=== PATIENT | female | born 1950 | race Caucasian/White ===

== ENCOUNTER 2021-08-01 18:53 | Emergency (ER) | payer MEDICARE ==
[2021-08-01] MEDS ORDERED: Albuterol/Ipratropium 3.0-0.5 MG/3 ML Neb Soln NEB ONE (20:28)
[2021-08-01] MEDS ORDERED: guaiFENesin 600 MG Tab.ER PO ONE (21:27)
== END 2021-08-01 21:55 | disposition home or self-care (01) ==
LOC: JP.ED 18:53
DX: J44.1 Chronic obstructive pulmonary disease with (acute) exacerbation (principal); R09.02 Hypoxemia; M19.90 Unspecified osteoarthritis, unspecified site; E11.9 Type 2 diabetes mellitus without complications; E03.9 Hypothyroidism, unspecified; E66.9 Obesity, unspecified; Z68.33 Body mass index [BMI] 33.0-33.9, adult; Z79.899 Other long term (current) drug therapy
CPT/HCPCS: 94640; 99282; 99284-25; A9270-GY; J7620

== ENCOUNTER 2022-02-19 13:48 | Emergency (ER) | payer MEDICARE ==
[2022-02-19] MEDS ORDERED: Albuterol/Ipratropium 3.0-0.5 MG/3 ML Neb Soln NEB ONE (15:18)
[2022-02-19 15:57] LABS: CORONAVIRUS COVID-19 NAA NEGATIVE (NEGATIVE)
[2022-02-19 15:58] LABS: ESTIMATED GFR 68 mL/min (>60); TROPONIN I HIGH SENSITIVITY 15.7 pg/mL (<=60.3)
[2022-02-19] MEDS ORDERED: methylPREDNISolone Sodium Succinate 40 MG/1 ML SDV IM ONE (16:43)
== END 2022-02-19 17:11 | disposition home or self-care (01) ==
LOC: JP.ED 13:48
DX: J21.0 Acute bronchiolitis due to respiratory syncytial virus (principal); J43.9 Emphysema, unspecified; M19.90 Unspecified osteoarthritis, unspecified site; E11.9 Type 2 diabetes mellitus without complications; E03.9 Hypothyroidism, unspecified; E66.9 Obesity, unspecified; Z68.32 Body mass index [BMI] 32.0-32.9, adult; Z87.891 Personal history of nicotine dependence; Z79.82 Long term (current) use of aspirin; Z79.84 Long term (current) use of oral hypoglycemic drugs; Z79.899 Other long term (current) drug therapy; Z20.822 Contact with and (suspected) exposure to COVID-19
CPT/HCPCS: 0241U; 36415; 71046; 80053; 83605; 84145; 84484; 85025; 94640; 96372; 99285; J2920; 99283; J7620

== ENCOUNTER 2022-02-21 07:50 | Inpatient (IN) | payer MEDICARE ==
[2022-02-21 08:48] LABS: ESTIMATED GFR 68 mL/min (>60)
[2022-02-21] MEDS ORDERED: Sodium Chloride 0.9% 10 ML Syringe FLUSH PRN ×2 (08:57→14:10)
[2022-02-21] MEDS ORDERED: Albuterol 0.083% 2.5 MG/3 ML Neb Soln NEB ONE (08:57)
[2022-02-21] MEDS ORDERED: Potassium Chloride 10 MEQ in Premix Bag 1 BAG IV ONE (08:58)
[2022-02-21] MEDS ORDERED: methylPREDNISolone Sodium Succinate 125 MG/2 ML SDV IVPUSH ONE (09:02)
[2022-02-21] MEDS ORDERED: Furosemide 40 MG/4 ML VIAL IVPUSH ONE (09:26)
[2022-02-21] MEDS ORDERED: Potassium Chloride 20 MEQ Tab.ER PO ONE ×2 (11:47→13:30)
[2022-02-21] MEDS ORDERED: Albuterol/Ipratropium 3.0-0.5 MG/3 ML Neb Soln NEB ONE (11:51)
[2022-02-21] MEDS: Potassium Chloride 10 MEQ in Premix Bag 1 BAG IV SCH ×4 (13:25→17:58)
[2022-02-21] MEDS ORDERED: Furosemide 40 MG Tab PO PRN (14:10)
[2022-02-21] MEDS ORDERED: Albuterol 90 MCG/6.7 GM Inhaler INH PRN (14:10)
[2022-02-21] MEDS ORDERED: Glucose Gel 15 GM in 37.5 GM Tube PO PRN (14:10)
[2022-02-21] MEDS ORDERED: Ondansetron 4 MG/2 ML SDV IV PRN (14:10)
[2022-02-21] MEDS ORDERED: Sodium Chloride 0.9% 1,000 ML IV SCH (14:10)
[2022-02-21] MEDS ORDERED: Acetaminophen 325 MG Tab PO PRN (14:10)
[2022-02-21] MEDS ORDERED: 50% Dextrose in Water 50 ML Syringe IV PRN (14:10)
[2022-02-21] MEDS ORDERED: Benzonatate 100 MG Cap PO PRN (14:10)
[2022-02-21] MEDS ORDERED: Albuterol 0.083% 2.5 MG/3 ML Neb Soln NEB PRN (14:10)
[2022-02-21] MEDS: Albuterol/Ipratropium 3.0-0.5 MG/3 ML Neb Soln NEB SCH ×2 (15:00→20:55)
[2022-02-21] MEDS: Enoxaparin 40 MG/0.4 ML Syringe SUBCUT SCH (15:34)
[2022-02-21] MEDS: methylPREDNISolone Sodium Succinate 40 MG/1 ML SDV IVPUSH SCH ×2 (15:34→22:17)
[2022-02-21] MEDS: Insulin Lispro 100 Unit/ML 3 ML KwikPen SUBCUT SCH ×2 (16:58→22:16)
[2022-02-21] MEDS: metFORMIN 500 MG Tab PO SCH (17:01)
[2022-02-21] MEDS: Formoterol/Mometasone 200-5 MCG 8.8 GM Inhaler IH SCH (20:52)
[2022-02-21] MEDS: Doxycycline 100 MG Cap PO SCH (20:55)
[2022-02-21] MEDS: Pramipexole 0.5 MG Tab PO SCH (20:55)
[2022-02-21] MEDS: Cetirizine 10 MG Tab PO SCH (20:55)
[2022-02-22] MEDS: methylPREDNISolone Sodium Succinate 40 MG/1 ML SDV IVPUSH SCH ×3 (05:42→21:31)
[2022-02-22] MEDS: Albuterol/Ipratropium 3.0-0.5 MG/3 ML Neb Soln NEB SCH ×4 (07:13→20:57)
[2022-02-22] MEDS: metFORMIN 500 MG Tab PO SCH ×2 (07:50→17:03)
[2022-02-22] MEDS: Insulin Lispro 100 Unit/ML 3 ML KwikPen SUBCUT SCH ×4 (07:50→21:24)
[2022-02-22] MEDS: Formoterol/Mometasone 200-5 MCG 8.8 GM Inhaler IH SCH ×2 (08:08→20:57)
[2022-02-22] MEDS ORDERED: Levothyroxine 50 MCG Tab PO SCH (09:00)
[2022-02-22] MEDS ORDERED: Tiotropium Bromide 4 GM Inhalation Spray (2.5mcg/1 dose; 10 doses) INH SCH (09:00)
[2022-02-22] MEDS: Aspirin 81 MG Tab.EC PO SCH (09:09)
[2022-02-22] MEDS: Montelukast 10 MG Tab PO SCH (09:09)
[2022-02-22] MEDS: Enoxaparin 40 MG/0.4 ML Syringe SUBCUT SCH (09:10)
[2022-02-22] MEDS: Cetirizine 10 MG Tab PO SCH ×2 (09:10→20:58)
[2022-02-22] MEDS: Pramipexole 0.5 MG Tab PO SCH ×2 (09:10→20:58)
[2022-02-22] MEDS: Theophylline 100 MG Cap.ER PO SCH (09:10)
[2022-02-22] MEDS: Doxycycline 100 MG Cap PO SCH ×2 (09:43→20:58)
[2022-02-22] MEDS ORDERED: cefTRIAXone 1 GM in Sodium Chloride 0.9% 50 ML IV SCH (16:00)
[2022-02-23] MEDS: methylPREDNISolone Sodium Succinate 40 MG/1 ML SDV IVPUSH SCH (05:30)
[2022-02-23] MEDS: Albuterol/Ipratropium 3.0-0.5 MG/3 ML Neb Soln NEB SCH ×4 (07:36→20:19)
[2022-02-23] MEDS: Tiotropium Bromide 4 GM Inhalation Spray (2.5mcg/1 dose; 10 doses) INH SCH (07:39)
[2022-02-23] MEDS: Insulin Lispro 100 Unit/ML 3 ML KwikPen SUBCUT SCH ×4 (08:09→21:25)
[2022-02-23] MEDS: metFORMIN 500 MG Tab PO SCH ×2 (08:10→17:10)
[2022-02-23] MEDS: Levothyroxine 50 MCG Tab PO SCH (08:10)
[2022-02-23] MEDS: predniSONE 20 MG Tab PO SCH (08:11)
[2022-02-23] MEDS: Aspirin 81 MG Tab.EC PO SCH (08:12)
[2022-02-23] MEDS: Pramipexole 0.5 MG Tab PO SCH ×2 (08:12→20:12)
[2022-02-23] MEDS: Formoterol/Mometasone 200-5 MCG 8.8 GM Inhaler IH SCH ×2 (08:12→20:11)
[2022-02-23] MEDS: Enoxaparin 40 MG/0.4 ML Syringe SUBCUT SCH (08:12)
[2022-02-23] MEDS: Cetirizine 10 MG Tab PO SCH ×2 (08:13→20:13)
[2022-02-23] MEDS: Theophylline 100 MG Cap.ER PO SCH (08:13)
[2022-02-23] MEDS: Montelukast 10 MG Tab PO SCH (08:13)
[2022-02-23] MEDS: Doxycycline 100 MG Cap PO SCH ×2 (08:13→20:13)
[2022-02-23] MEDS ORDERED: Acetylcysteine 20% 200 MG/ML 30 ML Nebulizer Soln SDV NEB SCH (10:10)
[2022-02-23] MEDS: Acetylcysteine 20% 200 MG/ML 4 ML Nebulizer Soln SDV NEB SCH ×2 (11:00→20:19)
[2022-02-23] MEDS: Cefdinir 300 MG Cap PO SCH ×2 (11:07→20:14)
[2022-02-24] MEDS: Albuterol/Ipratropium 3.0-0.5 MG/3 ML Neb Soln NEB SCH ×4 (07:07→21:37)
[2022-02-24] MEDS: Acetylcysteine 20% 200 MG/ML 4 ML Nebulizer Soln SDV NEB SCH ×2 (07:07→21:34)
[2022-02-24] MEDS: Tiotropium Bromide 4 GM Inhalation Spray (2.5mcg/1 dose; 10 doses) INH SCH (07:07)
[2022-02-24] MEDS: Levothyroxine 50 MCG Tab PO SCH (07:32)
[2022-02-24] MEDS: predniSONE 20 MG Tab PO SCH (07:32)
[2022-02-24] MEDS: Insulin Lispro 100 Unit/ML 3 ML KwikPen SUBCUT SCH ×4 (07:52→21:38)
[2022-02-24] MEDS: metFORMIN 500 MG Tab PO SCH ×2 (08:26→16:33)
[2022-02-24] MEDS: Cetirizine 10 MG Tab PO SCH ×2 (08:26→21:37)
[2022-02-24] MEDS: Theophylline 100 MG Cap.ER PO SCH (08:27)
[2022-02-24] MEDS: Aspirin 81 MG Tab.EC PO SCH (08:27)
[2022-02-24] MEDS: Montelukast 10 MG Tab PO SCH (08:27)
[2022-02-24] MEDS: Enoxaparin 40 MG/0.4 ML Syringe SUBCUT SCH (08:27)
[2022-02-24] MEDS: Doxycycline 100 MG Cap PO SCH ×2 (08:28→21:37)
[2022-02-24] MEDS: Cefdinir 300 MG Cap PO SCH ×2 (08:28→21:38)
[2022-02-24] MEDS: Pramipexole 0.5 MG Tab PO SCH ×2 (08:28→21:37)
[2022-02-24] MEDS: Formoterol/Mometasone 200-5 MCG 8.8 GM Inhaler IH SCH ×2 (09:55→21:47)
[2022-02-25] MEDS: Levothyroxine 50 MCG Tab PO SCH (07:15)
[2022-02-25] MEDS: Albuterol/Ipratropium 3.0-0.5 MG/3 ML Neb Soln NEB SCH ×2 (07:36→11:20)
[2022-02-25] MEDS: Acetylcysteine 20% 200 MG/ML 4 ML Nebulizer Soln SDV NEB SCH (07:36)
[2022-02-25] MEDS: Tiotropium Bromide 4 GM Inhalation Spray (2.5mcg/1 dose; 10 doses) INH SCH (07:37)
[2022-02-25] MEDS: Formoterol/Mometasone 200-5 MCG 8.8 GM Inhaler IH SCH (08:04)
[2022-02-25] MEDS: Insulin Lispro 100 Unit/ML 3 ML KwikPen SUBCUT SCH ×2 (09:44→12:22)
[2022-02-25] MEDS: Enoxaparin 40 MG/0.4 ML Syringe SUBCUT SCH (09:45)
[2022-02-25] MEDS: Pramipexole 0.5 MG Tab PO SCH (09:45)
[2022-02-25] MEDS: Theophylline 100 MG Cap.ER PO SCH (09:46)
[2022-02-25] MEDS: Montelukast 10 MG Tab PO SCH (09:46)
[2022-02-25] MEDS: predniSONE 20 MG Tab PO SCH (09:46)
[2022-02-25] MEDS: Cefdinir 300 MG Cap PO SCH (09:47)
[2022-02-25] MEDS: metFORMIN 500 MG Tab PO SCH (09:47)
[2022-02-25] MEDS: Cetirizine 10 MG Tab PO SCH (09:47)
[2022-02-25] MEDS: Doxycycline 100 MG Cap PO SCH (09:47)
[2022-02-25] MEDS: Aspirin 81 MG Tab.EC PO SCH (09:47)
== END 2022-02-25 12:45 | disposition home or self-care (01) | DRG 189 ==
LOC: JP.ED 07:50 → JP.MS 13:07
PROVIDERS: ADMIT Hospitalist; ATTEND Hospitalist
DX: J96.21 Acute and chronic respiratory failure with hypoxia (principal); J21.0 Acute bronchiolitis due to respiratory syncytial virus; J96.22 Acute and chronic respiratory failure with hypercapnia; J44.0 Chronic obstructive pulmonary disease with (acute) lower respiratory infection; J44.1 Chronic obstructive pulmonary disease with (acute) exacerbation; T38.0X5A Adverse effect of glucocorticoids and synthetic analogues, initial encounter; H54.7 Unspecified visual loss; J43.9 Emphysema, unspecified; M19.90 Unspecified osteoarthritis, unspecified site; Z99.81 Dependence on supplemental oxygen; Z79.51 Long term (current) use of inhaled steroids; E87.6 Hypokalemia; E11.9 Type 2 diabetes mellitus without complications; Z86.16 Personal history of COVID-19; E03.9 Hypothyroidism, unspecified; E66.9 Obesity, unspecified; Z79.82 Long term (current) use of aspirin; Z79.84 Long term (current) use of oral hypoglycemic drugs; Z79.899 Other long term (current) drug therapy; Z87.891 Personal history of nicotine dependence
CPT/HCPCS: 36415; 36600; 71046; 71046-26; 80048; 80053; 81001; 82803; 82947; 83605; 83735; 83880; 85025; 94640; 96361; 96374; 96375; 99222; 99232; 99238; 99285; 99285-25; A9270-GY; J0696; J1650; J1815; J1940; J2920; J2930; J3480; J3490; J7512; J7620

== ENCOUNTER 2022-06-18 13:31 | Inpatient (IN) | payer MEDICARE ==
[2022-06-18] MEDS ORDERED: Sodium Chloride 0.9% 10 ML Syringe FLUSH PRN ×2 (14:32→17:11)
[2022-06-18] MEDS ORDERED: Furosemide 40 MG/4 ML VIAL IVPUSH ONE (14:34)
[2022-06-18 14:46] LABS: BASOPHILS ABSOLUTE AUTO 0.05 K/uL (0.00-0.10); BASOPHILS PERCENT AUTO 0.6 % (0.1-1.3); EOSINOPHILS ABSOLUTE AUTO 0.25 K/uL (0.00-0.40); EOSINOPHILS PERCENT AUTO 3.1 % (0.0-5.4); HEMATOCRIT 43.5 % (34.3-46.0); HEMOGLOBIN 13.3 g/dL (11.2-15.5); IMMATURE GRAN PERCENT AUTO 0.2 % (0.0-0.7); LYMPHOCYTES ABSOLUTE AUTO 1.36 K/uL (0.8-3.3); LYMPHOCYTES PERCENT AUTO 16.8 % (11.4-47.7); MEAN CORPUSCULAR HEMOGLOBIN 30.7 pg (31.6-35.5); MEAN CORPUSCULAR HGB CONC 30.6 g/dL (31.6-35.5); MEAN CORPUSCULAR VOLUME 100.5 fL (81.4-99.0); MONOCYTES PERCENT AUTO 8.7 % (3.3-12.6); NEUTROPHILS ABSOLUTE AUTO 5.71 K/uL (1.0-7.6); NEUTROPHILS PERCENT AUTO 70.6 % (40.0-78.1); PLATELET COUNT,PLT 208 K/uL (130-375); RED BLOOD CELL COUNT 4.33 M/uL (3.77-5.24); WHITE BLOOD CELL COUNT,WBC 8.1 K/uL (3.2-11.0)
[2022-06-18 14:47] LABS: IMMATURE GRAN ABSOLUTE AUTO 0.02 K/uL (0.00-0.23)
[2022-06-18 15:17] LABS: A/G RATIO 0.9 (1.2-2.2); ALANINE AMINOTRANSFERASE,ALT 28 U/L (12-78); ALBUMIN 3.1 g/dL (3.4-5.0); ALKALINE PHOSPHATASE 82 U/L (46-116); ASPARTATE AMNIOTRANSFERASE,AST 28 U/L (15-37); BILIRUBIN TOTAL 0.4 mg/dL (0.2-1.0); BLOOD UREA NITROGEN,BUN 12 mg/dL (7-18); CALCIUM 8.5 mg/dL (8.5-10.1); CARBON DIOXIDE,CO2 35 mmol/L (21-32); CHLORIDE,CL 103 mmol/L (100-108); CREATININE 0.7 mg/dL (0.6-1.0); EST CRCL DRUG DOSING (CG) 52.18 mL/min; ESTIMATED GFR 92 mL/min (>60); GLUCOSE RANDOM 105 mg/dL (74-106); POTASSIUM,K 3.6 mmol/L (3.6-5.2); PRO B-TYPE NATRIUR PEPT,BNPPRO 300 pg/mL (5-125); PROTEIN TOTAL,TP 6.4 g/dL (6.4-8.2); SODIUM,NA 141 mmol/L (140-148)
[2022-06-18 15:19] LABS: APPEARANCE,URINE CLEAR (CLEAR); BILIRUBIN,URINE NEGATIVE (NEGATIVE); COLOR,URINE YELLOW (YELLOW); GLUCOSE,URINE NEGATIVE (NEGATIVE); KETONES,URINE NEGATIVE (NEGATIVE); LEUKOCYTE ESTERASE,URINE TRACE (NEGATIVE); NITRITE,URINE NEGATIVE (NEGATIVE); OCCULT BLOOD,URINE NEGATIVE (NEGATIVE); PROTEIN,URINE NEGATIVE (NEGATIVE); UROBILINOGEN,URINE 0.2 EU/dL (0.2-1.0)
[2022-06-18 15:20] LABS: ANION GAP 6.6 mmol/L (5.0-14.0)
[2022-06-18 15:23] LABS: AMORPHOUS SEDIMENT,URINE NOT SEEN; BACTERIA,URINE RARE; EPITHELIAL CELLS,URINE RARE; MUCUS,URINE RARE; RBC,URINE 0-5 (0-5)
[2022-06-18] MEDS ORDERED: Sodium Chloride 0.9% 75 ML IV SCH (15:45)
[2022-06-18] MEDS ORDERED: Iopamidol 755 Mg/ML 100 ML Bottle IV SCH (15:45)
[2022-06-18] MEDS ORDERED: methylPREDNISolone Sodium Succinate 125 MG/2 ML SDV IVPUSH ONE (16:39)
[2022-06-18] MEDS ORDERED: Sodium Chloride 0.65% Nasal Spray 45 ML Bottle NAS PRN (17:11)
[2022-06-18] MEDS ORDERED: Acetaminophen 325 MG Tab PO PRN (17:11)
[2022-06-18] MEDS ORDERED: Glucose Gel 15 GM in 37.5 GM Tube PO PRN ×2 (17:11→18:26)
[2022-06-18] MEDS ORDERED: metFORMIN 500 MG Tab PO SCH (17:11)
[2022-06-18] MEDS ORDERED: Insulin Lispro 100 Unit/ML 3 ML KwikPen SUBCUT SCH (17:11)
[2022-06-18] MEDS ORDERED: Albuterol 0.083% 2.5 MG/3 ML Neb Soln NEB PRN (17:11)
[2022-06-18] MEDS ORDERED: Albuterol/Ipratropium 3.0-0.5 MG/3 ML Neb Soln INH PRN (17:11)
[2022-06-18] MEDS ORDERED: Potassium Chloride 20 MEQ Tab.ER PO ONE (17:11)
[2022-06-18] MEDS ORDERED: Ondansetron 4 MG/2 ML SDV IV PRN (17:11)
[2022-06-18] MEDS ORDERED: 50% Dextrose in Water 50 ML Syringe IVPUSH PRN (17:11)
[2022-06-18] MEDS ORDERED: 50% Dextrose in Water 50 ML Syringe IV PRN ×2 (17:11→18:26)
[2022-06-18] MEDS ORDERED: Non-Formulary Medication 1 Each (Albuterol/Ipratropium [Combivent Respimat] 4 GM Inhaler) IH PRN (17:11)
[2022-06-18] MEDS ORDERED: Albuterol 90 MCG/6.7 GM Inhaler INH PRN (17:11)
[2022-06-18] MEDS ORDERED: Glucagon,Human Recombinant 1 MG Vial IM PRN (17:11)
[2022-06-18] MEDS: Enoxaparin 40 MG/0.4 ML Syringe SUBCUT SCH (18:01)
[2022-06-18] MEDS ORDERED: Cetirizine 10 MG Tab PO ONE (19:45)
[2022-06-18] MEDS ORDERED: Insulin Glargine,Human Rec. Analog 100 Units/ML 3 ML Pen SUBCUT SCH (21:00)
[2022-06-18] MEDS: Insulin Lispro 100 Unit/ML 3 ML KwikPen SUBCUT SCH (21:35)
[2022-06-18] MEDS: Insulin Glargine,Human Rec. Analog 100 Units/ML 3 ML Pen SUBCUT SCH (21:36)
[2022-06-18] MEDS: Formoterol/Mometasone 200-5 MCG 8.8 GM Inhaler IH SCH (21:37)
[2022-06-18] MEDS: Pregabalin 50 MG Cap PO SCH (21:37)
[2022-06-18] MEDS: Theophylline 100 MG Cap.ER PO SCH (21:38)
[2022-06-18] MEDS: Pramipexole 0.5 MG Tab PO SCH (21:38)
[2022-06-18] MEDS: Potassium Chloride 10 MEQ Cap.ER PO SCH (21:38)
[2022-06-19 05:20] LABS: HEMATOCRIT 46.5 % (34.3-46.0); HEMOGLOBIN 14.3 g/dL (11.2-15.5); MEAN CORPUSCULAR HEMOGLOBIN 30.5 pg (31.6-35.5); MEAN CORPUSCULAR HGB CONC 30.8 g/dL (31.6-35.5); MEAN CORPUSCULAR VOLUME 99.1 fL (81.4-99.0); RED BLOOD CELL COUNT 4.69 M/uL (3.77-5.24); WHITE BLOOD CELL COUNT,WBC 8.2 K/uL (3.2-11.0)
[2022-06-19 05:39] LABS: CALCIUM 9.1 mg/dL (8.5-10.1); CREATININE 0.8 mg/dL (0.6-1.0); EST CRCL DRUG DOSING (CG) 45.66 mL/min; POTASSIUM,K 4.7 mmol/L (3.6-5.2); THEOPHYLLINE 6.8 ug/mL (10-20.0)
[2022-06-19 05:43] LABS: ANION GAP 9.7 mmol/L (5.0-14.0)
[2022-06-19] MEDS: Levothyroxine 50 MCG Tab PO SCH (07:38)
[2022-06-19] MEDS: Furosemide 40 MG/4 ML VIAL IVPUSH SCH ×2 (07:38→09:43)
[2022-06-19] MEDS: metFORMIN 500 MG Tab PO SCH ×2 (07:39→16:48)
[2022-06-19] MEDS: Potassium Chloride 10 MEQ Cap.ER PO SCH ×3 (07:39→16:48)
[2022-06-19] MEDS ORDERED: predniSONE 10 MG Tab PO SCH (08:00)
[2022-06-19] MEDS: Insulin Lispro 100 Unit/ML 3 ML KwikPen SUBCUT SCH ×4 (08:09→21:47)
[2022-06-19] MEDS: Formoterol/Mometasone 200-5 MCG 8.8 GM Inhaler IH SCH ×3 (08:14→21:48)
[2022-06-19] MEDS: Pramipexole 0.5 MG Tab PO SCH ×2 (08:14→21:50)
[2022-06-19] MEDS: Aspirin 81 MG Tab.EC PO SCH (08:14)
[2022-06-19] MEDS: Montelukast 10 MG Tab PO SCH (08:15)
[2022-06-19] MEDS: Cetirizine 10 MG Tab PO SCH ×2 (08:16→21:51)
[2022-06-19] MEDS: Tiotropium Bromide 4 GM Inhalation Spray (2.5mcg/1 dose; 10 doses) INH SCH (08:18)
[2022-06-19] MEDS: Pregabalin 50 MG Cap PO SCH ×2 (08:53→21:53)
[2022-06-19] MEDS: Enoxaparin 40 MG/0.4 ML Syringe SUBCUT SCH (17:00)
[2022-06-19] MEDS: Insulin Glargine,Human Rec. Analog 100 Units/ML 3 ML Pen SUBCUT SCH (21:49)
[2022-06-19] MEDS: Theophylline 100 MG Cap.ER PO SCH (21:50)
[2022-06-20 04:36] LABS: CALCIUM 8.6 mg/dL (8.5-10.1); CREATININE 0.8 mg/dL (0.6-1.0); EST CRCL DRUG DOSING (CG) 45.66 mL/min; POTASSIUM,K 3.8 mmol/L (3.6-5.2)
[2022-06-20 05:21] LABS: ANION GAP 9.8 mmol/L (5.0-14.0)
[2022-06-20] MEDS: Levothyroxine 50 MCG Tab PO SCH (07:39)
[2022-06-20] MEDS: Insulin Lispro 100 Unit/ML 3 ML KwikPen SUBCUT SCH ×2 (07:39→11:49)
[2022-06-20] MEDS: Potassium Chloride 10 MEQ Cap.ER PO SCH ×2 (07:40→11:50)
[2022-06-20] MEDS: metFORMIN 500 MG Tab PO SCH (07:40)
[2022-06-20] MEDS: Formoterol/Mometasone 200-5 MCG 8.8 GM Inhaler IH SCH (08:10)
[2022-06-20] MEDS: Tiotropium Bromide 4 GM Inhalation Spray (2.5mcg/1 dose; 10 doses) INH SCH (08:10)
[2022-06-20] MEDS: Pramipexole 0.5 MG Tab PO SCH (09:12)
[2022-06-20] MEDS: Montelukast 10 MG Tab PO SCH (09:12)
[2022-06-20] MEDS: Cetirizine 10 MG Tab PO SCH (09:12)
[2022-06-20] MEDS: Pregabalin 50 MG Cap PO SCH (09:12)
[2022-06-20] MEDS: Aspirin 81 MG Tab.EC PO SCH (09:12)
== END 2022-06-20 13:10 | disposition home or self-care (01) | DRG 291 ==
LOC: JP.ED 13:31 → JP.MS 16:36
PROVIDERS: ADMIT Hospitalist; ATTEND Internal Medicine
DX: I50.33 Acute on chronic diastolic (congestive) heart failure (principal); J96.21 Acute and chronic respiratory failure with hypoxia; J96.22 Acute and chronic respiratory failure with hypercapnia; E87.6 Hypokalemia; E11.9 Type 2 diabetes mellitus without complications; J43.9 Emphysema, unspecified; M19.90 Unspecified osteoarthritis, unspecified site; Z20.822 Contact with and (suspected) exposure to COVID-19; E03.9 Hypothyroidism, unspecified; E66.9 Obesity, unspecified; Z98.49 Cataract extraction status, unspecified eye; Z98.890 Other specified postprocedural states; Z79.4 Long term (current) use of insulin; Z79.899 Other long term (current) drug therapy; Z79.51 Long term (current) use of inhaled steroids; Z79.82 Long term (current) use of aspirin; Z79.890 Hormone replacement therapy; Z87.891 Personal history of nicotine dependence; Z68.31 Body mass index [BMI] 31.0-31.9, adult
CPT/HCPCS: 36415; 71046; 71046-26; 71275; 80048; 80053; 80198; 81001; 82947; 83735; 83880; 84443; 85025; 85027; 85379; 94640; 96374; 96375; 97161-GP; 99285-25; A9270-GY; J1650; J1815; J1815-GY; J1940; J2930; J3490; J7512; Q9967; U0002

== ENCOUNTER 2022-11-19 08:20 | Emergency (ER) | payer MEDICARE ==
[2022-11-19 08:49] LABS: APPEARANCE,URINE SLIGHTLY CLOUDY (CLEAR); BILIRUBIN,URINE NEGATIVE (NEGATIVE); COLOR,URINE YELLOW (YELLOW); GLUCOSE,URINE NEGATIVE (NEGATIVE); KETONES,URINE NEGATIVE (NEGATIVE); LEUKOCYTE ESTERASE,URINE SMALL (NEGATIVE); NITRITE,URINE POSITIVE (NEGATIVE); OCCULT BLOOD,URINE TRACE-INTACT (NEGATIVE); PH,URINE 5.5 (5.0-8.0); PROTEIN,URINE NEGATIVE (NEGATIVE); UROBILINOGEN,URINE 0.2 EU/dL (0.2-1.0)
[2022-11-19 08:55] LABS: BASE EXCESS VENOUS 5.5 mm/L; BASOPHILS ABSOLUTE AUTO 0.07 K/uL (0.00-0.10); BASOPHILS PERCENT AUTO 0.6 % (0.1-1.3); BICARBONATE,VENOUS 31.8 mmol/L; EOSINOPHILS ABSOLUTE AUTO 0.54 K/uL (0.00-0.40); EOSINOPHILS PERCENT AUTO 4.4 % (0.0-5.4); HEMATOCRIT 43.9 % (34.3-46.0); HEMOGLOBIN 14.3 g/dL (11.2-15.5); IMMATURE GRAN PERCENT AUTO 0.8 % (0.0-0.7); LYMPHOCYTES ABSOLUTE AUTO 1.46 K/uL (0.8-3.3); LYMPHOCYTES PERCENT AUTO 11.9 % (11.4-47.7); MEAN CORPUSCULAR HGB CONC 32.6 g/dL (31.6-35.5); METHEMOGLOBIN 0.9 %; MONOCYTES ABSOLUTE AUTO 0.98 K/uL (0.20-0.90); NEUTROPHILS ABSOLUTE AUTO 9.15 K/uL (1.0-7.6); NEUTROPHILS PERCENT AUTO 74.3 % (40.0-78.1); OXYHEMOGLOBIN 30.1 %; PCO2 VENOUS 54.5 mm/Hg; PH,VENOUS 7.383 (7.350-7.450); PLATELET COUNT,PLT 242 K/uL (130-375); RED BLOOD CELL COUNT 4.62 M/uL (3.77-5.24); TOTAL HEMOGLOBIN 14.9 g/dL (12.0-16.0); WHITE BLOOD CELL COUNT,WBC 12.3 K/uL (3.2-11.0)
[2022-11-19 08:58] LABS: AMORPHOUS SEDIMENT,URINE RARE; BACTERIA,URINE MANY; EPITHELIAL CELLS,URINE FEW; MUCUS,URINE NOT SEEN; RBC,URINE 0-5 (0-5)
[2022-11-19 08:58] LABS: PO2 VENOUS 20.6 mm/Hg
[2022-11-19 09:15] LABS: C-REACTIVE PROTEIN 5.74 mg/dL (0.0-0.3); CREATININE 0.9 mg/dL (0.6-1.0); EST CRCL DRUG DOSING (CG) 40.58 mL/min; POTASSIUM,K 4.1 mmol/L (3.6-5.2)
[2022-11-19 09:18] LABS: ANION GAP 10.1 mmol/L (5.0-14.0)
== END 2022-11-19 11:04 | disposition home or self-care (01) ==
LOC: JP.ED 08:20
DX: N39.0 Urinary tract infection, site not specified (principal); J44.9 Chronic obstructive pulmonary disease, unspecified; E11.9 Type 2 diabetes mellitus without complications; E66.9 Obesity, unspecified; Z68.31 Body mass index [BMI] 31.0-31.9, adult
CPT/HCPCS: 36415; 71046; 71046-26; 80048; 81001; 82803; 83605; 83880; 84145; 85025; 86140; 99285

== ENCOUNTER 2023-08-29 16:53 | Emergency (ER) | payer MEDICARE ==
[2023-08-29] MEDS ORDERED: Naloxone 0.4 MG/ML SDV IVPUSH PRN (17:27)
[2023-08-29 17:38] LABS: BASOPHILS ABSOLUTE AUTO 0.07 K/uL (0.00-0.10); BASOPHILS PERCENT AUTO 0.6 % (0.1-1.3); EOSINOPHILS ABSOLUTE AUTO 0.12 K/uL (0.00-0.40); HEMOGLOBIN 12.8 g/dL (11.2-15.5); IMMATURE GRAN ABSOLUTE AUTO 0.03 K/uL (0.00-0.23); IMMATURE GRAN PERCENT AUTO 0.3 % (0.0-0.7); LYMPHOCYTES ABSOLUTE AUTO 1.25 K/uL (0.8-3.3); LYMPHOCYTES PERCENT AUTO 10.8 % (11.4-47.7); MEAN CORPUSCULAR HEMOGLOBIN 31.4 pg (31.6-35.5); MEAN CORPUSCULAR HGB CONC 33.7 g/dL (31.6-35.5); MEAN CORPUSCULAR VOLUME 93.4 fL (81.4-99.0); MONOCYTES ABSOLUTE AUTO 0.87 K/uL (0.20-0.90); MONOCYTES PERCENT AUTO 7.5 % (3.3-12.6); NEUTROPHILS ABSOLUTE AUTO 9.28 K/uL (1.0-7.6); NEUTROPHILS PERCENT AUTO 79.8 % (40.0-78.1); PLATELET COUNT,PLT 206 K/uL (130-375); RED BLOOD CELL COUNT 4.07 M/uL (3.77-5.24); WHITE BLOOD CELL COUNT,WBC 11.6 K/uL (3.2-11.0)
[2023-08-29 17:39] LABS: BASE EXCESS VENOUS 3.3 mm/L; BICARBONATE,VENOUS 28.6 mmol/L; CARBOXYHEMOGLOBIN 2.4 % (0.0-1.6); O2 SATURATION VENOUS 46.5; OXYHEMOGLOBIN 44.9 %; PCO2 VENOUS 48.5 mm/Hg; PH,VENOUS 7.389 (7.350-7.450); TOTAL HEMOGLOBIN 13.4 g/dL (12.0-16.0)
[2023-08-29 17:43] LABS: PO2 VENOUS 26.4 mm/Hg
[2023-08-29] MEDS: HYDROmorphone 0.5 MG/0.5 ML Syringe IVPUSH PRN (17:52)
[2023-08-29] MEDS: Sodium Chloride 0.9% 1,000 ML IV ONE (17:53)
[2023-08-29 17:56] LABS: PROTHROMBIN TIME 10.4 sec (9.2-10.6)
[2023-08-29 18:07] LABS: A/G RATIO 1.4 (1.2-2.2); ALANINE AMINOTRANSFERASE,ALT 29 U/L (12-78); ALBUMIN 3.8 g/dL (3.4-5.0); ALKALINE PHOSPHATASE 70 U/L (46-116); ANION GAP 8.3 mmol/L (5.0-14.0); ASPARTATE AMNIOTRANSFERASE,AST 30 U/L (15-37); BILIRUBIN TOTAL 0.7 mg/dL (0.2-1.0); BLOOD UREA NITROGEN,BUN 20 mg/dL (7-18); CALCIUM 9.2 mg/dL (8.5-10.1); CARBON DIOXIDE,CO2 29 mmol/L (21-32); CHLORIDE,CL 104 mmol/L (100-108); CREATININE 0.9 mg/dL (0.6-1.0); EST CRCL DRUG DOSING (CG) 39.99 mL/min; ESTIMATED GFR 68 mL/min (>60); GLUCOSE RANDOM 96 mg/dL (74-106); POTASSIUM,K 4.9 mmol/L (3.6-5.2); PRO B-TYPE NATRIUR PEPT,BNPPRO 483 pg/mL (5-125); PROTEIN TOTAL,TP 6.6 g/dL (6.4-8.2); SODIUM,NA 141 mmol/L (140-148); TROPONIN I HIGH SENSITIVITY 6.8 pg/mL (<=60.3)
[2023-08-29 18:24] LABS: CORONAVIRUS COVID-19 NAA NEGATIVE (NEGATIVE); INFLUENZA A NAA NEGATIVE (NEGATIVE); INFLUENZA B NAA NEGATIVE (NEGATIVE); RESPIRATORY SYNCYTIAL VIR NAA NEGATIVE (NEGATIVE)
[2023-08-29] MEDS ORDERED: Sodium Chloride 0.9% 1,000 ML IV SCH (18:30)
[2023-08-29] MEDS: Sodium Chloride 0.9% 100 ML IV SCH (18:50)
[2023-08-29] MEDS: Iopamidol 755 Mg/ML 100 ML Bottle IV SCH (18:50)
[2023-08-29] MEDS: Furosemide 20 MG/2 ML VIAL IVPUSH ONE (19:00)
[2023-08-29] MEDS: Albuterol/Ipratropium 3.0-0.5 MG/3 ML Neb Soln NEB ONE (19:00)
[2023-08-29 19:27] LABS: BILIRUBIN,URINE NEGATIVE (NEGATIVE); COLOR,URINE YELLOW (YELLOW); GLUCOSE,URINE NEGATIVE (NEGATIVE); KETONES,URINE TRACE mg/dL (NEGATIVE); LEUKOCYTE ESTERASE,URINE TRACE (NEGATIVE); NITRITE,URINE NEGATIVE (NEGATIVE); OCCULT BLOOD,URINE NEGATIVE (NEGATIVE); PROTEIN,URINE NEGATIVE (NEGATIVE); UROBILINOGEN,URINE 0.2 EU/dL (0.2-1.0)
[2023-08-29 19:33] LABS: AMORPHOUS SEDIMENT,URINE NOT SEEN; APPEARANCE,URINE SLIGHTLY CLOUDY (CLEAR); BACTERIA,URINE FEW; EPITHELIAL CELLS,URINE RARE; MUCUS,URINE NOT SEEN; RBC,URINE 0-5 (0-5)
[2023-08-29] MEDS: Naproxen 250 MG Tab PO ONE (20:08)
== END 2023-08-29 21:24 | disposition home or self-care (01) ==
LOC: JP.ED 16:53
DX: J43.1 Panlobular emphysema (principal); R09.1 Pleurisy; J44.9 Chronic obstructive pulmonary disease, unspecified; E11.9 Type 2 diabetes mellitus without complications; E03.9 Hypothyroidism, unspecified; E66.9 Obesity, unspecified; M19.90 Unspecified osteoarthritis, unspecified site; Z79.82 Long term (current) use of aspirin; Z79.899 Other long term (current) drug therapy; Z86.16 Personal history of COVID-19
CPT/HCPCS: 0241U; 36415; 71045; 71275; 80053; 81001; 82803; 83605; 83735; 83880; 84145; 84484; 85025; 85379; 85610; 93005; 94640; 96374; 96375; 99285; A9270; J1170; J1940; J3490; J7030; Q9967; J7620